=== PATIENT | female | born 1990 | race Caucasian/White ===

== ENCOUNTER → 2017-01-26 | Outpatient (CLI) | payer OTHER | END | disposition home or self-care (01) | LOC: LABWHC1 06:43 | PROVIDERS: ATTEND Obstetrics & Gynecology | DX: Z32.00 Encounter for pregnancy test, result unknown (principal) | CPT/HCPCS: 36415; 84144; 84702 ==

== ENCOUNTER 2017-08-02 21:25 | Outpatient (CLI) | payer OTHER ==
[2017-08-02 21:51] LABS: Appearance,Urine Clear (Clear); Bacteria,Urine Rare /hpf; Bilirubin,Urine Negative (Negative); Blood,Urine Negative (Negative); Color,Urine Light Yellow; Glucose,Urine (UA) Negative (Negative); Ketones,Urine Negative (Negative); Leukocyte Esterase,Urine Trace (Negative); Nitrite,Urine Negative (Negative); PH, Urine 5.5 (5.0-8.0); Protein,Urine Negative (Negative); RBC,Urine 1 /hpf (0-5); Specific Gravity,Urine 1.004 (1.001-1.035); Squamous Epithelial Cell,Urine <1 /hpf (0-4); Urobilinogen,Urine <2.0 mg/dL (<2.0); WBC,Urine 1 /hpf (0-5)
[2017-08-02] MEDS: LACTATED RINGERS 1,000 ML IV SCH ×2 (21:56→22:37)
[2017-08-02 22:53] VITALS: BP 139/81; PULSE 91; RESP 18; TEMP 98.7
--- NOTE | 2017-10-02 09:15 | P.MSEPDOC ---
Presenting Problems - Arrival Data Date of Arrival on Unit: 08/02/17 Time of Arrival on Unit: 21:30 Mode of Transport: Wheelchair - Complaint OB-Reason for Admission/Chief Complaint: Pain Medical History - Information : 1 Para: 0 Term: 0 : 0 Abortions: Spontaneous or Elective: 0 Number of Living Children: 0 - Gestational Age Gestational Age by NATIVIDAD (wks/days): 30 Weeks and 6 Days Review of Systems - Review of Systems Constitutional: No problems Breast: No problems ENT: No problems Cardiovascular: No problems Respiratory: No problems Gastrointestinal: No problems Genitourinary: No problems Musculoskeletal: No problems Neurological: No problems Skin: No problems Vital Signs - Temperature Temperature: 98.7 F Temperature Source: Temporal Artery Scan - Pulse Right Brachial Pulse Rate: 91 Pulse Assessment Method: Automatic Cuff - Respirations Respiratory Rate: 18 Oxygen Delivery Method: Room Air - Blood Pressure Right Arm Blood Pressure: 139/81 Blood Pressure Mean: 100 Blood Pressure Source: Automatic Cuff Medical Screen Scoring (Pre) - Cervical Exam Dilation: 1-3 cm = 1 Membranes: Intact - Uterine Contractions Frequency: N/A Duration: N/A Intensity: N/A - Maternal Vital Signs Maternal Temperature: N/A Signs of Preeclampsia: N/A, Headache = 1, Nausea/Vomiting = 1, Visual Disturbance = 1 Maternal Respirations: N/A - Pain Assessment Pain Location and Character: Back Pain Scale Used: Numeric (1 - 10) Pain Intensity: 10 Pain Management Goal: 5 Pain Description: *Acute Pain Radiation Location: none Pain Frequency: Constant Pain Duration: 6 Pain Duration Units: Hours Pain Behavior: Decreased Activity, Facial Grimacing, Fidgeting, Limping, Teary Eyed, Vocalization Non-Pharmacological Interventions: Heat - Maternal Trauma Maternal Trauma: N/A - Assessment Baseline FHR: 140 Heart Rate - NICHD Category: Category I (Normal) = 0 NST: Reactive Position: N/A Station: N/A - Total Score Total Score (Pre): 4 - Level of Risk Level of Risk: Low (0-5) Physician Notification (Pre) - Physician Notified Physician Notified Date: 08/02/17 Physician Notified Time: 22:14 Physician/Practitioner Notifed:: Dr. Chow Spoke With: Dr. Chow New Order Received: Yes - Notification Comment Comment: treated pt with ivf, sent ua and ffn, if ffn negative, pt will be discharged home Medical Screen Scoring (Post) - Cervical Exam Dilation: 1-3 cm = 1 - Uterine Contractions Frequency: N/A Duration: N/A Intensity: N/A - Maternal Vital Signs Maternal Temperature: N/A Signs of Preeclampsia: N/A Maternal Respirations: N/A - Pain Assessment Pain Location and Character: Back Pain Scale Used: Numeric (1 - 10) Pain Intensity: 5 Pain Management Goal: 5 Pain Description: *Acute Pain Radiation Location: none Pain Frequency: Constant - Maternal Trauma Maternal Trauma: N/A - Assessment Heart Rate: 140 Heart Rate - NICHD Category: Category I (Normal) = 0 NST: Reactive Position: N/A Station: N/A - Total Score Total Score (Post): 1 - Post Treatment Level of Risk Post Treatment Level of Risk: Low (0-5) Physician Notification (Post) - Physician Notified Physician Notified Date: 08/02/17 Physician Notified Time: 22:14 Physician/Practitioner Notified:: Dr. Chow Spoke With: Dr. Chow New Order Received: Yes - Notification Comment Comment: discharge home if ffn is negative Disposition - Disposition OB Disposition: Physician follow up in office, Discharge to home, Written follow up instructions reviewed Discharge Date: 08/02/17 Discharge Time: 23:10 I agree with the RN Medical Screening Exam: Yes Risk & Benefit of care provided described in d/c instruction: Yes Diagnosis: FALSE LABOR BEFORE 37 COMPLETED WEEKS OF GEST, THIRD TRI
== END 2017-08-02 23:10 | disposition home or self-care (01) ==
LOC: FBPOP 21:25
PROVIDERS: ATTEND Obstetrics & Gynecology
DX: O47.03 False labor before 37 completed weeks of gestation, third trimester (principal); Z3A.30 30 weeks gestation of pregnancy
CPT/HCPCS: 59025; 81001; 82731; 96360; 96361; 99214

== ENCOUNTER 2017-09-25 11:24 | Outpatient (CLI) | payer OTHER ==
[2017-09-25 12:13] VITALS: RESP 16; TEMP 98.2
[2017-09-25 12:24] VITALS: BP 123/88; PULSE 88
--- NOTE | 2017-10-06 16:47 | P.MSEPDOC ---
Presenting Problems - Arrival Data Date of Arrival on Unit: 09/25/17 Time of Arrival on Unit: 11:27 Mode of Transport: Ambulatory - Complaint OB-Reason for Admission/Chief Complaint: PIH, Observation/Evaluation Comment: pt here for blood pressure monitoring sent from the office Medical History - Information : 1 Para: 0 Term: 0 : 0 Abortions: Spontaneous or Elective: 0 Number of Living Children: 0 - Gestational Age Gestational Age by NATIVIDAD (wks/days): 38 Weeks and 4 Days Review of Systems - Review of Systems Constitutional: No problems Breast: No problems ENT: No problems Cardiovascular: No problems Respiratory: No problems Gastrointestinal: No problems Genitourinary: No problems Musculoskeletal: No problems Neurological: No problems Skin: No problems Vital Signs - Temperature Temperature: 98.2 F Temperature Source: Oral - Pulse Right Brachial Pulse Rate: 88 Pulse Assessment Method: Automatic Cuff - Respirations Respiratory Rate: 16 Oxygen Delivery Method: Room Air O2 Sat by Pulse Oximetry: 99 - Blood Pressure Right Arm Blood Pressure: 123/88 Blood Pressure Mean: 99 Blood Pressure Source: Automatic Cuff Medical Screen Scoring (Pre) - Cervical Exam Dilation: Exam Deferred - Uterine Contractions Frequency: N/A Duration: N/A Intensity: N/A - Maternal Vital Signs Maternal Temperature: N/A Maternal Blood Pressure: N/A Signs of Preeclampsia: N/A Maternal Respirations: N/A - Pain Assessment Pain Scale Used: Numeric (1 - 10) Pain Intensity: 0 Pain Management Goal: 0 Pain Behavior: None Exhibited - Maternal Trauma Maternal Trauma: N/A - Assessment Baseline FHR: 130 Heart Rate - NICHD Category: Category I (Normal) = 0 NST: Reactive Position: N/A, Non-vertex & not laboring = 3 Station: N/A - Total Score Total Score (Pre): 3 - Level of Risk Level of Risk: Low (0-5) Physician Notification (Pre) - Physician Notified Physician Notified Date: 09/25/17 Physician/Practitioner Notifed:: Dr Chow Spoke With: Dr Chow New Order Received: Yes - Notification Comment Comment: if blood pressures remain WNL, and NST is reactive, no contractions, pt may be discharged home. Medical Screen Scoring (Post) - Cervical Exam Dilation: Exam Deferred - Uterine Contractions Frequency: N/A - Maternal Vital Signs Maternal Temperature: N/A Signs of Preeclampsia: N/A Maternal Respirations: N/A - Pain Assessment Pain Scale Used: Numeric (1 - 10) Pain Intensity: 0 Pain Management Goal: 0 Pain Behavior: None Exhibited - Maternal Trauma Maternal Trauma: N/A - Assessment Heart Rate: 130 Heart Rate - NICHD Category: Category I (Normal) = 0 NST: Reactive Position: N/A Station: N/A - Total Score Total Score (Post): 0 - Post Treatment Level of Risk Post Treatment Level of Risk: Low (0-5) Physician Notification (Post) - Physician Notified Physician Notified Date: 09/25/17 Spoke With: Dr Chow - Notification Comment Comment: pt to be discharged NST reactive, blood pressure WNL spoke with Dr Chow earlier upon admission Disposition - Disposition OB Disposition: Discharge to home Discharge Date: 09/25/17 Discharge Time: 12:16 I agree with the RN Medical Screening Exam: Yes Risk & Benefit of care provided described in d/c instruction: Yes Diagnosis: OTHER SPECIFIED COMPLICATIONS OF LABOR AND DELIVERY
== END 2017-09-25 12:16 | disposition home or self-care (01) ==
LOC: FBPOP 11:24
PROVIDERS: ATTEND Obstetrics & Gynecology Obstetrics
DX: O75.89 Other specified complications of labor and delivery (principal); Z3A.38 38 weeks gestation of pregnancy
CPT/HCPCS: 59025; 99213

== ENCOUNTER 2017-09-28 05:55 | Inpatient (IN) | payer OTHER ==
[2017-09-28 06:10] VITALS: BMI 37.0
[2017-09-28] MEDS ORDERED: TERBUTALINE 1 MG/ML VIAL SQ PRN (06:10)
[2017-09-28] MEDS ORDERED: OXYTOCIN 10 UNIT/ML 1 ML VIAL IM PRN (06:10)
[2017-09-28] MEDS ORDERED: LIDOCAINE 1% (PF) 10 MG/ML (30 ML SDV) SQ PRN (06:10)
[2017-09-28] MEDS ORDERED: METHYLERGONOVINE 0.2 MG/ML 1 ML AMP IM PRN (06:10)
[2017-09-28] MEDS ORDERED: CARBOPROST TROMETHAMINE 250 MCG/ML 1 ML AMP IM PRN (06:10)
[2017-09-28] MEDS ORDERED: OXYTOCIN 20 UNITS/1000 ML NS 1,000 ML IV SCH ×2 (06:15→13:15)
[2017-09-28] MEDS: LACTATED RINGERS 1,000 ML IV SCH ×2 (06:16→10:15)
[2017-09-28 06:21] LABS: Basophils % (A) 0 %; Eosinophils # (A) 0.1 k/uL (0-0.7); Eosinophils % (A) 1 %; HCT 34.9 % (34.0-46.0); HGB 11.3 gm/dL (11.4-16.0); Lymphocytes # (A) 2.7 k/uL (1.0-4.8); Lymphocytes % (A) 26 %; MCH 25.4 pg (25.0-35.0); MCHC 32.2 g/dL (31.0-37.0); MCV 78.8 fL (80.0-100.0); Mean Platelet Volume 10.3; Monocytes # (A) 0.6 k/uL (0-1.0); Monocytes % (A) 6 %; Neutrophils # (A) 6.8 k/uL (1.3-7.7); Neutrophils % (A) 65 %; Platelet Count 214 k/uL (150-450); RBC 4.43 m/uL (3.80-5.40); RDW 13.6 % (11.5-15.5); WBC 10.4 k/uL (3.8-10.6)
--- NOTE | 2017-09-28 08:25 | P.HPOB ---
History of Present Illness H&P Date: 09/28/17 Chief Complaint: IUP @ 39 0/7 weeks This is a 27 yo AT 39 0/7 that presents for IOL. she had an elevated BP in the office on tuesday 09/26. she notes good FM, and denies LOF, VB on blood work blood type is O pos, rubella immune, hepatitis B surface antigen negative, HIV negative, RPR nonreactive, group beta strep negative. Past medical history significant for hypothyroidism, asthma, polycystic ovarian syndrome. Review of Systems Constitutional: Denies fatigue Cardiovascular: Denies chest pain Respiratory: Denies cough, Denies dyspnea Gastrointestinal: Denies constipation, Denies diarrhea Genitourinary: Reports Psychiatric: Denies anxiety, Denies depression Past Medical History Past Medical History: Thyroid Disorder History of Any Multi-Drug Resistant Organisms: None Reported Past Surgical History: Orthopedic Surgery Past Anesthesia/Blood Transfusion Reactions: No Reported Reaction Past Psychological History: No Psychological Hx Reported Smoking Status: Never smoker Past Alcohol Use History: None Reported Past Drug Use History: None Reported - Past Family History Father Family Medical History: No Reported History Medications and Allergies Home Medications Medication Instructions Recorded Confirmed Type Levothyroxine Sodium [Synthroid] 125 mcg PO DAILY 07/12/17 09/28/17 History Omeprazole 20 mg PO DAILY 08/02/17 09/28/17 History Pnv,Calcium 72/Iron/Folic Acid 1 tab PO DAILY 08/02/17 09/28/17 History [ Plus Tablet] Allergies Allergy/AdvReac Type Severity Reaction Status Date / Time No Known Allergies Allergy Verified 09/28/17 05:58 Exam Osteopathic Statement: *. No significant issues noted on an osteopathic structural exam other than those noted in the History and Physical/Consult. - Vital Signs Vital signs: Vital Signs Temp Pulse Resp BP Pulse Ox 09/28/17 05:57 98.4 F 103 H 16 137/88 98 Intake and Output 09/27/17 09/28/17 09/28/17 22:59 06:59 14:59 Other: # Voids 1 Weight 101.151 kg - OBG Physical Exam Abdomen: gravid Cervix: 4/90/-2, AROM fluid noted Uterus: enlarged Results Result Diagrams: 09/28/17 06:15 Abnormal Lab Results - Last 24 Hours (Table) 03/12/18 Range/Units 06:15 Hgb 11.3 L (11.4-16.0) gm/dL MCV 78.8 L (80.0-100.0) fL Assessment and Plan (1) Term Narrative/Plan: will admit for labor and delivery, pitocin induction per protocol pain medication, stadol, epidural if requested. Current Visit: Yes Status: Acute Code(s): Z34.80 - ENCOUNTER FOR SUPRVSN OF NORMAL , UNSP TRIMESTER SNOMED Code(s): 85812819 Time with Patient: Less than 30
[2017-09-28] MEDS ORDERED: BUPIVACAINE (PF) 0.25% 30 ML VIAL ONE (10:18)
[2017-09-28] MEDS ORDERED: fentaNYL (PF) 50 MCG/ML 5 ML AMP ONE (10:18)
[2017-09-28] MEDS ORDERED: SODIUM CHLORIDE 0.9% 100 ML BAG ONE (10:18)
[2017-09-28] MEDS ORDERED: BUPIVACAINE (PF) 0.25% 25 ML, fentaNYL (PF) 200 MCG in SODIUM CHLORIDE 0.9% 71 ML EPIDURAL ONE (10:34)
[2017-09-28] MEDS ORDERED: BENZOCAINE/MENTHOL SPRAY 1 GM/SPRAY AEROSOL TOPICAL PRN (13:03)
[2017-09-28] MEDS ORDERED: diphenhydrAMINE 25 MG CAP PO PRN (13:03)
[2017-09-28] MEDS ORDERED: diphenhydrAMINE 50 MG/ML 1 ML VIAL IVP PRN ×2 (13:03)
[2017-09-28] MEDS ORDERED: WITCH HAZEL 1 EACH MED..PAD TOPICAL PRN (13:03)
[2017-09-28] MEDS ORDERED: diphenhydrAMINE 50 MG CAP PO PRN (13:03)
[2017-09-28] MEDS ORDERED: IBUPROFEN 600 MG TAB PO PRN (13:03)
[2017-09-28] MEDS ORDERED: LANOLIN CREAM 5 GM TUBE TOPICAL PRN (13:03)
[2017-09-28] MEDS ORDERED: HYDROCORTISONE 2.5% RECTAL CREAM 30 GM TUBE RECTAL PRN (13:03)
[2017-09-28] MEDS ORDERED: SIMETHICONE 80 MG CHEWABLE PO PRN (13:03)
[2017-09-28] MEDS ORDERED: ACETAMINOPHEN TAB 325 MG TAB PO PRN (13:03)
[2017-09-28] MEDS ORDERED: ZOLPIDEM 5 MG TAB PO PRN (13:03)
--- NOTE | 2017-09-28 13:03 | P.PROBDLV ---
Vaginal Delivery Note - . Vaginal Delivery Note: This is a pleasant 27-year-old 1 para 0 at 39-0/7 weeks with an estimated date of confinement of 10/05/2017. She presented to labor and delivery earlier today for induction of labor. Patient was noted to have an elevated blood pressure in the office on Thursday and elective induction of labor was scheduled. Patient was admitted to labor and delivery was 4 cm on admission Pitocin augmentation of labor was begun and amniotomy was performed yielding clear fluid. Patient progressed to 5-1/2 eventually getting an epidural after the epidural patient was noted to be 9 cm dilated. Patient progressed to complete heart tones at that time were noted to be reassuring, with subsequent pushing heart tones dropped to the 80s with good [id number] and recovery to baseline and hands and knees position. Patient brought the baby down to +2 station with pushing. At this time patient was taken to her left side heart tones were noted to be in the 90s. Patient was taken back to her back pushing continued heart tones were noted to be in the 70s/80s a vacuum was applied for for total pushes no pop offs were noted the pressure was noted to be in the green with each push and pressure was only applied with each contraction. Patient had a vacuum-assisted vaginal delivery of a viable male at 12:30, weight of 6 lbs. 4 oz. spontaneous cry was noted at with a good heart rate. The scalp was noted to be slightly edematous with some sloughing of the skin secondary to the vacuum assist delivery. This was discussed with mom and dad as the baby was on the warmer. The placenta was then delivered spontaneously and cord gasses was taken prior to placenta delivery. A right labial laceration was noted which was repaired in the usual fashion with 3-0 chromic. Of note the bladder was drained prior to and application of the vacuum. Patient tolerated delivery well was resting comfortably and stable in the nursery. Estimated blood loss was noted to be partially 300 mL. Next Delivery was discussed with the patient in detail, vacuum assist delivery was chosen for delivery secondary to position and station. Patient stated understanding all questions were answered regarding the delivery
[2017-09-28] MEDS: SENNOSIDES-DOCUSATE SODIUM 1 EACH TAB PO SCH (19:39)
[2017-09-29 00:21] VITALS: RESP 18
[2017-09-29] MEDS: SENNOSIDES-DOCUSATE SODIUM 1 EACH TAB PO SCH ×2 (08:45→20:53)
[2017-09-29] MEDS: LEVOTHYROXINE 125 MCG TAB PO SCH (09:14)
[2017-09-29] MEDS: PRENATAL VIT-IRON-FOLIC ACID 1 EACH CAP PO SCH (09:14)
--- NOTE | 2017-09-29 12:42 | P.PN ---
Subjective Progress Note Date: 09/29/17 Principal diagnosis: PPD #1 VAVD Patient is doing well on this day #1. She is ambulating and voiding without difficulty. breast feeding is going well. Lochia is minimal. She is tolerating regular diet without nausea or vomiting. She denies any pain control issues at this time. Objective - Vital Signs Vital signs: Vital Signs Temp 97.8 F 09/29/17 08:00 Pulse 96 09/29/17 08:00 Resp 18 09/29/17 08:00 BP 142/84 09/29/17 08:00 Pulse Ox 98 09/29/17 08:00 Intake & Output 09/28/17 09/29/17 09/29/17 18:59 06:59 18:59 Other: # Voids 1 2 2 - Constitutional General appearance: Present: average body habitus, cooperative - Gastrointestinal Gastrointestinal Comment(s): uterus firm below the umbilicus - Musculoskeletal Musculoskeletal: Present: gait normal - Psychiatric Psychiatric: Present: A&O x's 3, appropriate affect - Labs CBC & Chem 7: 09/28/17 06:15 Assessment and Plan (1) Term Current Visit: Yes Status: Acute Code(s): Z34.80 - ENCOUNTER FOR SUPRVSN OF NORMAL , UNSP TRIMESTER SNOMED Code(s): 72881009 Plan: doing well post , anticipate d/c tomorrow. all questions answered. Time with Patient: Less than 30
[2017-09-30] MEDS: LEVOTHYROXINE 125 MCG TAB PO SCH (07:45)
[2017-09-30] MEDS: SENNOSIDES-DOCUSATE SODIUM 1 EACH TAB PO SCH (07:45)
[2017-09-30] MEDS: PRENATAL VIT-IRON-FOLIC ACID 1 EACH CAP PO SCH (07:45)
--- NOTE | 2017-09-30 09:18 | P.DS ---
Providers Date of admission: 09/28/17 05:55 Expected date of discharge: 09/30/17 Attending physician: Bisi Chow Primary care physician: Stated None - Discharge Diagnosis(es) (1) Term Current Visit: Yes Status: Acute Hospital Course: didi is a 27uo admitted for elective IOL on 09/28. pt progressed through labor well, getting an epidural and NRFHTs and +2 station resulted in a VAVD of a viable male infant apgars 6-8 at 1 and 5 mins respectively. has done well since delivery. nikko course has been uneventful. she is ambulating and voiding without difficulty and denies pain. she is withtout issue in addition. she is tolerating a regular diet without n/v. lochia is moderate. Patient Condition at Discharge: Good Plan - Discharge Summary New Discharge Prescriptions: No Action Levothyroxine Sodium [Synthroid] 125 mcg PO DAILY Omeprazole 20 mg PO DAILY Pnv,Calcium 72/Iron/Folic Acid [ Plus Tablet] 1 tab PO DAILY Discharge Medication List Levothyroxine Sodium [Synthroid] 125 mcg PO DAILY 07/12/17 [History] Omeprazole 20 mg PO DAILY 08/02/17 [History] Pnv,Calcium 72/Iron/Folic Acid [ Plus Tablet] 1 tab PO DAILY 08/02/17 [ History] Follow up Appointment(s)/Referral(s): Bisi Chow DO [Doctor of Osteopathic Medicine] - 1-2 Days (thursday for BP check) Patient Instructions/Handouts: Vaginal Delivery (GEN), Vaginal Delivery (DC)
[2017-09-30 10:47] VITALS: BP 141/83; PULSE 96; TEMP 98.6
== END 2017-09-30 14:10 | disposition home or self-care (01) | DRG 775 ==
LOC: 4FBP 05:55
PROVIDERS: ADMIT Obstetrics & Gynecology Obstetrics; ATTEND Obstetrics & Gynecology Obstetrics
PROC: 10E0XZZ Delivery of Products of Conception, External Approach (ICD-10-PCS; principal; 2017-09-28)
PROC: 3E0R3NZ Introduction of Analgesics, Hypnotics, Sedatives into Spinal Canal, Percutaneous Approach (ICD-10-PCS; principal; 2017-09-28)
PROC: 0HQ9XZZ Repair Perineum Skin, External Approach (ICD-10-PCS; principal; 2017-09-28)
PROC: 10D07Z6 Extraction of Products of Conception, Vacuum, Via Natural or Artificial Opening (ICD-10-PCS; principal; 2017-09-28)
PROC: 10907ZC Drainage of Amniotic Fluid, Therapeutic from Products of Conception, Via Natural or Artificial Opening (ICD-10-PCS; principal; 2017-09-28)
DX: O70.0 First degree perineal laceration during delivery (principal); E03.9 Hypothyroidism, unspecified; Z37.0 Single live birth; O99.284 Endocrine, nutritional and metabolic diseases complicating childbirth; Z3A.39 39 weeks gestation of pregnancy; Z79.890 Hormone replacement therapy; Z79.899 Other long term (current) drug therapy
CPT/HCPCS: 85025; 88307

== ENCOUNTER → 2019-05-16 | Outpatient (CLI) | payer OTHER | END | disposition home or self-care (01) | LOC: LABWHC1 09:04 | PROVIDERS: ATTEND Obstetrics & Gynecology Obstetrics | DX: O20.0 Threatened abortion (principal); Z3A.00 Weeks of gestation of pregnancy not specified | CPT/HCPCS: 36415; 84702; 86850; 86900; 86901 ==

== ENCOUNTER → 2019-05-18 | Outpatient (CLI) | payer OTHER | LOC: LABWHC1 09:10 | PROVIDERS: ATTEND Obstetrics & Gynecology Obstetrics | DX: O20.0 Threatened abortion (principal) | CPT/HCPCS: 36415; 84702 ==

== ENCOUNTER → 2019-11-11 | Outpatient (CLI) | payer BC | END | disposition home or self-care (01) | LOC: LABWHC1 08:13 | PROVIDERS: ATTEND Obstetrics & Gynecology Obstetrics | DX: N92.5 Other specified irregular menstruation (principal) | CPT/HCPCS: 36415; 84702 ==

== ENCOUNTER → 2019-11-14 | Outpatient (CLI) | payer BC | END | disposition home or self-care (01) | LOC: LABWHC1 08:23 | PROVIDERS: ATTEND Obstetrics & Gynecology Obstetrics | DX: N92.5 Other specified irregular menstruation (principal) | CPT/HCPCS: 36415; 84702 ==

== ENCOUNTER 2020-07-11 06:00 | Inpatient (IN) | payer BC ==
[2020-07-11] MEDS ORDERED: OXYTOCIN 10 UNIT/ML 1 ML VIAL IM PRN (16:22)
[2020-07-11] MEDS ORDERED: LIDOCAINE 0.5% (PF) 5 MG/ML (50 ML SDV) SQ PRN (16:22)
[2020-07-11] MEDS ORDERED: TERBUTALINE 1 MG/ML VIAL SQ PRN (16:22)
[2020-07-11] MEDS ORDERED: CARBOPROST TROMETHAMINE 250 MCG/ML 1 ML AMP IM PRN (16:22)
[2020-07-11] MEDS ORDERED: METHYLERGONOVINE 0.2 MG/ML 1 ML AMP IM PRN (16:22)
[2020-07-11] MEDS ORDERED: OXYTOCIN 30 UNITS/500 ML NS 30 UNIT in SALINE 1 500ML.BAG IV SCH (16:30)
[2020-07-11] MEDS: LACTATED RINGERS 1,000 ML IV SCH ×3 (17:00→23:56)
--- NOTE | 2020-07-11 17:17 | P.HPOB ---
History of Present Illness H&P Date: 07/11/20 Chief Complaint: IUP @ 380/7 weeks, anomaly, h/o VAVD This is a 30 yo at 38 0/7 weeks that presents for IOL secondary to anomaly. she has been receiving routine care and at her 20 weeks ultrasound anomaly was noted, maternity 21 was drawn and normal. she was seen by MFM and an underdeveloped left ulna and hand was diagnosed. 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 she was an IOL at 39 weeks and progressed quickly to complete when NRFHTs necessitated a VAVD. she has been undergoing growth US q 4 week along with weekly NST. US done on 07/04 revealing an EFW of 6-14. she has been noting increasing ctx, and pelvic pressure this week. On labs she has a blood type of O pos, rubella immune, RPR NR, hepBSag neg, HIV neg, GBS culture is neg as well. she did receive the flu and Tdap injections this . Review of Systems Constitutional: Reports fatigue, Denies chills, Denies fever Ears, nose, mouth and throat: Denies headache Cardiovascular: Reports leg edema Respiratory: Denies dyspnea Gastrointestinal: Denies nausea, Denies vomiting Genitourinary: Reports Past Medical History Past Medical History: Thyroid Disorder History of Any Multi-Drug Resistant Organisms: None Reported Past Surgical History: Orthopedic Surgery Past Anesthesia/Blood Transfusion Reactions: No Reported Reaction Past Psychological History: No Psychological Hx Reported Past Alcohol Use History: None Reported Past Drug Use History: None Reported - Past Family History Father Family Medical History: No Reported History Medications and Allergies Home Medications Medication Instructions Recorded Confirmed Type Levothyroxine Sodium [Synthroid] 125 mcg PO DAILY MDD 125 mcg 07/12/17 07/11/20 History Pnv,Calcium 72/Iron/Folic Acid 1 tab PO DAILY MDD 1 tab 08/02/17 07/11/20 History [ Plus Tablet] Allergies Allergy/AdvReac Type Severity Reaction Status Date / Time No Known Allergies Allergy Verified 09/28/17 05:58 Exam Osteopathic Statement: *. No significant issues noted on an osteopathic structural exam other than those noted in the History and Physical/Consult. targeted physical exam done on this date, in general this is a well developed, well nourished female in [facility], breathing is noted to be non labored, heart has a RRR, abdomen is gravid, FHTS are category 1 and irregular CTX are noted. on cervical exam she is 4-5/50/-2 amniotomy is preformed and clear fluid is obtained Assessment and Plan (1) anomaly Current Visit: No Status: Acute Code(s): OXY7313 - SNOMED Code(s): 89134113 (2) Term Current Visit: No Status: Acute Code(s): Z34.80 - ENCOUNTER FOR SUPRVSN OF NORMAL , UNSP TRIMESTER SNOMED Code(s): 52655849 Plan: this 30 yo at 38 weeks presents for planned IOL secondary to known anomaly and h/o VAVD. she has been notinng increasing ctx this week along with pelvic pressure. she is admitted to labor and delivery for IOL. Pitocin induction of labor is begun per hospital protocol. options of stadol vs epid ural are reviewed and she will consider.
[2020-07-11 17:24] LABS: Basophils % (A) 0 %; Eosinophils # (A) 0.1 k/uL (0-0.7); Eosinophils % (A) 1 %; HCT 31.9 % (34.0-46.0); HGB 10.5 gm/dL (11.4-16.0); Hypochromasia Slight; Lymphocytes # (A) 2.2 k/uL (1.0-4.8); Lymphocytes % (A) 22 %; MCH 26.1 pg (25.0-35.0); MCHC 33.1 g/dL (31.0-37.0); MCV 78.9 fL (80.0-100.0); Mean Platelet Volume 10.2; Monocytes # (A) 0.6 k/uL (0-1.0); Monocytes % (A) 6 %; Neutrophils # (A) 6.8 k/uL (1.3-7.7); Neutrophils % (A) 67 %; Platelet Count 203 k/uL (150-450); RBC 4.04 m/uL (3.80-5.40); WBC 10.2 k/uL (3.8-10.6)
[2020-07-11] MEDS ORDERED: ROPIVACAINE 5MG/ML 20ML VIAL ONE (20:31)
[2020-07-11] MEDS ORDERED: SODIUM CHLORIDE 0.9% 100 ML BAG ONE (20:31)
[2020-07-11] MEDS ORDERED: fentaNYL (PF) 50 MCG/ML 5 ML AMP ONE (20:31)
[2020-07-11] MEDS: OXYTOCIN 20 UNITS/1000 ML NS 1,000 ML IV SCH (21:36)
[2020-07-11] MEDS ORDERED: SIMETHICONE 80 MG CHEWABLE PO PRN (21:49)
[2020-07-11] MEDS ORDERED: ACETAMINOPHEN TAB 325 MG TAB PO PRN (21:49)
[2020-07-11] MEDS ORDERED: BENZOCAINE/MENTHOL SPRAY 1 GM/SPRAY AEROSOL TOPICAL PRN (21:49)
[2020-07-11] MEDS ORDERED: LANOLIN CREAM 5 GM TUBE TOPICAL PRN (21:49)
[2020-07-11] MEDS ORDERED: ZOLPIDEM 5 MG TAB PO PRN (21:49)
[2020-07-11] MEDS ORDERED: diphenhydrAMINE 50 MG CAP PO PRN (21:49)
[2020-07-11] MEDS ORDERED: diphenhydrAMINE 25 MG CAP PO PRN (21:49)
[2020-07-11] MEDS ORDERED: HYDROCORTISONE 2.5% RECTAL CREAM 30 GM TUBE RECTAL PRN (21:49)
[2020-07-11] MEDS ORDERED: diphenhydrAMINE 50 MG/ML 1 ML VIAL IVP PRN ×2 (21:49)
--- NOTE | 2020-07-11 21:54 | P.PROBDLV ---
Vaginal Delivery Note - . Vaginal Delivery Note: This is a 30-year-old 011 that presented to labor and delivery at 38-0/7 weeks for scheduled induction of labor secondary to anomaly, history of vacuum assist vaginal delivery. Subsequently on admission patient was noted to be 4-5 cm dilated, advanced cervical dilation with contractions. Patient has had a that is been complicated by a anomaly, patient was seen in maternal- medicine secondary to under developed left ulnar and hand. MFM did feel like be vascular insult during organogenesis versus amniotic band syndrome. Patient has noted good growth throughout the , testing has been reassuring. Patient was admitted to labor and delivery and Pitocin induction of labor was begun per hospital protocol. Amniotomy was performed and clear fluid was obtained. Patient progressed through labor eventually becoming uncomfortable and requesting epidural placement. Epidural was placed by the anesthesia Department without difficulty. Soon after epidural patient was noted to be complete she began pushing and had normal spontaneous vaginal delivery of a viable male at 2132, weight of 7 pounds 1.8 ounces or 3225 g, Apgars of 9 and 9 at one and 5 minutes respectively. After two-minute delay the umbilical cords doubly clamped and cut and the placenta was delivered spontaneously intact with a three-vessel cord being noted. On inspection the patient's vaginal vault a first-degree vaginal laceration was noted and repaired in usual fashion with 3-0 Rapide. Hemostasis was appreciated after repair. Uterus is noted to be firm and below the umbilicus at this time. Estimated blood loss 200 mL. Patient and tolerated delivery well and are resting comfortably.
[2020-07-11] MEDS: IBUPROFEN 600 MG TAB PO PRN (22:21)
[2020-07-12 00:10] LABS: Basophils % (A) 0 %; Eosinophils # (A) 0.1 k/uL (0-0.7); Eosinophils % (A) 0 %; HCT 28.1 % (34.0-46.0); Hypochromasia Slight; Lymphocytes # (A) 1.9 k/uL (1.0-4.8); Lymphocytes % (A) 9 %; MCHC 31.2 g/dL (31.0-37.0); MCV 79.9 fL (80.0-100.0); Mean Platelet Volume 10.8; Monocytes # (A) 0.8 k/uL (0-1.0); Monocytes % (A) 4 %; Neutrophils # (A) 17.4 k/uL (1.3-7.7); Neutrophils % (A) 85 %; Platelet Count 232 k/uL (150-450); RBC 3.52 m/uL (3.80-5.40); RDW 14.1 % (11.5-15.5); WBC 20.5 k/uL (3.8-10.6)
--- NOTE | 2020-07-12 00:13 | P.PN ---
Subjective Progress Note Date: 07/12/20 Principal diagnosis: hemorrhage The patient is status post normal spontaneous vaginal delivery approximately 2 hours ago which was relatively uncomplicated and nature. During her recovery, she is noted to have significantly increased vaginal bleeding with relative ut erine atony. A significant amount of clots were passed after which time I was contacted. The patient reports not feeling well at that time. Objective - Vital Signs Vital signs: Vital Signs Temp 97.6 F 07/11/20 22:40 Pulse 113 H 07/11/20 23:10 Resp 18 07/11/20 23:10 BP 127/69 07/11/20 23:10 Pulse Ox 97 07/11/20 16:59 Intake & Output 07/11/20 07/11/20 07/12/20 06:59 18:59 06:59 Intake Total 1800 Balance 1800 Weight 99.79 kg Intake: IV 1800 Other: # Voids 2 - Exam In general, the patient is somewhat pale in appearance and was noted to be fairly tachycardic with short-term lower blood pressures which have now normalized. She remains tachycardic in the 110's. Bimanual pelvic examination demonstrates a moderate amount of clot in the lower uterine segment which is not well contracted. Clots were evacuated onto the mother's pad at which time a piece of tissue was felt just above the level of the cervix was grasped between 2 fingers and removed intact after which time the uterus contracted very well and was noted to be 2 fingers below the umbilicus with no significant ongoing bleeding. I then examined the placenta and noted that one of the margins of the placenta had a similarly shaped piece missing from the edge of the placenta. - Labs CBC & Chem 7: 07/11/20 17:15 Labs: Abnormal Lab Results - Last 24 Hours (Table) 07/11/20 07/11/20 Range/Units 17:15 17:15 Hgb 10.5 L (11.4-16.0) gm/dL Hct 31.9 L (34.0-46.0) % MCV 78.9 L (80.0-100.0) fL Crossmatch See Detail Assessment and Plan (1) Normal spontaneous vaginal delivery Current Visit: Yes Status: Acute Code(s): O80 - ENCOUNTER FOR FULL-TERM UNCOMPLICATED DELIVERY SNOMED Code(s): 49198287 (2) hemorrhage Current Visit: Yes Status: Acute Code(s): O72.1 - OTHER IMMEDIATE HEMORRHAGE SNOMED Code(s): 43563714 (3) Retained placenta Current Visit: Yes Status: Acute Code(s): O73.0 - RETAINED PLACENTA WITHOUT HEMORRHAGE SNOMED Code(s): 945697379 Plan: Digital evacuation of the lower uterine segment was able to remove a fairly l arge portion of placenta which was undoubtedly causing continued bleeding and uterine atony with the inability of the lower uterine segment to contract well despite Pitocin and Methergine. Following evacuation of clots and placenta, the uterus contracted significantly well. Vital signs are currently stable though she is still tachycardic. Total blood loss calculated by weight by the nursing staff is in the range of 2300 mL including delivery. As her admission hemoglobin was 10.5, I will transfuse 1 unit of packed red blood cells and hold the second in reserve. Stat CBC is currently pending. She will have a repeat CBC approximate 6 hours posttransfusion of the unit of packed red blood cells. We will continue with Pitocin through the night and monitor carefully for further uterine atony as well as vital sign abnormalities. I have also asked the nursing staff to follow urine output.
[2020-07-12 00:16] LABS: HGB 8.8 gm/dL (11.4-16.0)
[2020-07-12] MEDS: LACTATED RINGERS 1,000 ML IV SCH ×3 (00:45→02:09)
[2020-07-12] MEDS: OXYTOCIN 20 UNITS/1000 ML NS 1,000 ML IV SCH (01:21)
[2020-07-12] MEDS ORDERED: LEVOTHYROXINE 125 MCG TAB PO SCH (06:30)
[2020-07-12] MEDS: IBUPROFEN 600 MG TAB PO PRN ×3 (07:42→19:47)
--- NOTE | 2020-07-12 08:21 | P.DS ---
Providers Date of admission: 07/11/20 16:29 Expected date of discharge: 07/12/20 Attending physician: Bisi Chow Primary care physician: Stated None - Discharge Diagnosis(es) (1) anomaly Current Visit: No Status: Acute (2) Term Current Visit: No Status: Acute (3) Normal spontaneous vaginal delivery Current Visit: Yes Status: Acute (4) hemorrhage Current Visit: Yes Status: Acute (5) Retained placenta Current Visit: Yes Status: Acute Hospital Course: 30-year-old 3 para 2011 presented to labor and delivery last evening for scheduled induction of labor at 38-0/7 weeks that ear to anomaly and history of vacuum assist vaginal delivery. Patient had been seeing maternal medicine after a 20 week ultrasound noted a limb abnormality. Patient had underdeveloped left arm and hand. Patient underwent maternity 21 testing and no genetic anomaly was appreciated. Patient was seen closely throughout the with normal growth and testing. Patient was admitted to labor and delivery and Pitocin induction of labor was begun per hospital protocol. Patient underwent amniotomy and clear fluid was obtained. Patient progressed quickly through labor eventually becoming uncomfortable and requesting epidural placement. Epidural was placed without difficulty by the anesthesia department. Patient progressed to complete very quickly after epidural was placed began pushing and had a normal spontaneous vaginal delivery of a viable male , weight of 7 lbs. 1 oz. at 2132, Apgars of 9 and 9 at one and 5 minutes respectively. Patient's course was Dated by a hemorrhage around midnight. Patient noted increased bleeding, a small piece piece of placenta was evacuated from the uterus. Patient did receive 1 unit of packed red blood cells. Starting hemoglobin 10.5 went down to 8.1 per patient. Patient states she is feeling well this morning. She is ambulatory and voiding without difficulty. She tolerate breakfast without difficulty. She states the is nursing well. She is due for an additional CBC around 9:30 10 AM this morning. We will monitor vitals and evaluate hemoglobin as she would like discharge home later this evening at 24 hours. Patient Condition at Discharge: Good Plan - Discharge Summary New Discharge Prescriptions: No Action Levothyroxine Sodium [Synthroid] 125 mcg PO DAILY MDD 125 mcg Pnv,Calcium 72/Iron/Folic Acid [ Plus Tablet] 1 tab PO DAILY MDD 1 tab Discharge Medication List Levothyroxine Sodium [Synthroid] 125 mcg PO DAILY MDD 125 mcg 07/12/17 [History] Pnv,Calcium 72/Iron/Folic Acid [ Plus Tablet] 1 tab PO DAILY MDD 1 tab 08/02/17 [History] Follow up Appointment(s)/Referral(s): Bisi Chow DO [Doctor of Osteopathic Medicine] - 4 Weeks Patient Instructions/Handouts: Vaginal Delivery (DC), Vaginal Delivery (GEN) Discharge Disposition: HOME SELF-CARE
[2020-07-12] MEDS ORDERED: PRENATAL VIT-IRON-FOLIC ACID 1 EACH CAP PO SCH (09:00)
[2020-07-12 10:39] LABS: Basophils % (A) 0 %; Eosinophils # (A) 0.1 k/uL (0-0.7); Eosinophils % (A) 0 %; HCT 26.1 % (34.0-46.0); HGB 8.6 gm/dL (11.4-16.0); Hypochromasia Slight; Lymphocytes # (A) 1.8 k/uL (1.0-4.8); Lymphocytes % (A) 15 %; MCH 26.6 pg (25.0-35.0); MCHC 32.9 g/dL (31.0-37.0); MCV 80.8 fL (80.0-100.0); Mean Platelet Volume 9.5; Monocytes # (A) 0.7 k/uL (0-1.0); Monocytes % (A) 6 %; Neutrophils # (A) 9.4 k/uL (1.3-7.7); Neutrophils % (A) 77 %; Platelet Count 164 k/uL (150-450); RBC 3.24 m/uL (3.80-5.40); RDW 14.3 % (11.5-15.5); WBC 12.2 k/uL (3.8-10.6)
[2020-07-12] MEDS: SENNOSIDES-DOCUSATE SODIUM 1 EACH TAB PO SCH ×2 (11:11→20:32)
[2020-07-12 17:04] VITALS: BP 121/77; PULSE 92; RESP 16; TEMP 98.3
== END 2020-07-12 22:05 | disposition home or self-care (01) | DRG 806 ==
LOC: 4FBP 16:29
PROVIDERS: ADMIT Obstetrics & Gynecology Obstetrics; ATTEND Obstetrics & Gynecology Obstetrics
PROC: 10E0XZZ Delivery of Products of Conception, External Approach (ICD-10-PCS; principal; 2020-07-11)
PROC: 0HQ9XZZ Repair Perineum Skin, External Approach (ICD-10-PCS; principal; 2020-07-11)
PROC: 3E033VJ Introduction of Other Hormone into Peripheral Vein, Percutaneous Approach (ICD-10-PCS; principal; 2020-07-11)
PROC: 00HU33Z Insertion of Infusion Device into Spinal Canal, Percutaneous Approach (ICD-10-PCS; principal; 2020-07-11)
PROC: 3E0R3BZ Introduction of Anesthetic Agent into Spinal Canal, Percutaneous Approach (ICD-10-PCS; principal; 2020-07-11)
PROC: 10907ZC Drainage of Amniotic Fluid, Therapeutic from Products of Conception, Via Natural or Artificial Opening (ICD-10-PCS; principal; 2020-07-11)
PROC: 10D17Z9 Manual Extraction of Products of Conception, Retained, Via Natural or Artificial Opening (ICD-10-PCS; 2020-07-12)
PROC: 30233N1 Transfusion of Nonautologous Red Blood Cells into Peripheral Vein, Percutaneous Approach (ICD-10-PCS; 2020-07-12)
DX: O35.8XX0 Maternal care for other (suspected) fetal abnormality and damage, not applicable or unspecified (principal); O72.2 Delayed and secondary postpartum hemorrhage; Z37.0 Single live birth; O70.0 First degree perineal laceration during delivery; O99.284 Endocrine, nutritional and metabolic diseases complicating childbirth; E07.9 Disorder of thyroid, unspecified; Z3A.38 38 weeks gestation of pregnancy; Z79.890 Hormone replacement therapy; Z79.899 Other long term (current) drug therapy
CPT/HCPCS: 85025; 86850; 86900; 86901; 86920

== ENCOUNTER → 2021-02-12 | Outpatient (CLI) | payer BC | END | disposition home or self-care (01) | LOC: LABWHC1 14:47 | PROVIDERS: ATTEND Obstetrics & Gynecology Obstetrics | DX: E03.9 Hypothyroidism, unspecified (principal) | CPT/HCPCS: 36415; 84439; 84443 ==

== ENCOUNTER → 2021-03-07 | Outpatient (CLI) | payer BC ==
--- NOTE | 2021-03-07 10:19 | USB ---
Reason for exam: clinical finding. History: Taking hormonal contraceptives for 6 years. Indicated problem(s): pain in the left breast. Physical Findings: Nurse Summary: Patient complains of pain left upper outer quadrant x 1.5 months, on and off, sharp/dull, milky/yellowish nipple discharge left breast only with expulsion, no spontaneous discharge, all soft, movable (nurse TM). US Breast LT Left complete breast ultrasound includes all four quadrants, the retroareolar region and axilla. Finding demonstrates no cystic or solid lesion seen. No duct ectasia. These results were verbally communicated with the patient and result sheet given to the patient on 03/07/21. ASSESSMENT: Negative, BI-RAD 1 RECOMMENDATION: Routine screening mammogram of both breasts at age 39. Manage on a clinical basis with regard to left breast pain. The breast can be reimaged if any suspicious discharge develops. Nurse educated patient as to suspicious nipple discharge.
== END | disposition home or self-care (01) ==
LOC: RADUSWWP 07:33
PROVIDERS: ATTEND Obstetrics & Gynecology Obstetrics
DX: N64.4 Mastodynia (principal)

== ENCOUNTER → 2021-05-09 | Outpatient (CLI) | payer BC ==
[2021-05-09 12:08] LABS: Appearance,Urine Clear (Clear); Bilirubin,Urine Negative (Negative); Blood,Urine Negative (Negative); Color,Urine Light Yellow; Glucose,Urine (UA) Negative (Negative); Ketones,Urine Negative (Negative); Leukocyte Esterase,Urine Trace (Negative); Nitrite,Urine Negative (Negative); Protein,Urine Negative (Negative); RBC,Urine <1 /hpf (0-5); Specific Gravity,Urine 1.008 (1.001-1.035); Squamous Epithelial Cell,Urine 1 /hpf (0-4); Urobilinogen,Urine <2.0 mg/dL (<2.0); WBC,Urine <1 /hpf (0-5)
[2021-05-09 16:23] LABS: Basophils # (A) 0.03 X 10*3/uL (0.00-0.10); Basophils % (A) 0.4 %; Eosinophils # (A) 0.06 X 10*3/uL (0.04-0.35); Eosinophils % (A) 0.8 %; HCT 38.9 % (37.2-46.3); HGB 12.4 g/dL (12.0-15.0); Lymphocytes # (A) 2.11 X 10*3/uL (0.90-5.00); Lymphocytes % (A) 28.9 %; MCH 28.1 pg (27.0-32.0); MCHC 31.9 g/dL (32.0-37.0); MCV 88.2 fL (80.0-97.0); Monocytes # (A) 0.51 X 10*3/uL (0.20-1.00); Neutrophils # (A) 4.59 X 10*3/uL (1.80-7.70); Neutrophils % (A) 62.8 %; Platelet Count 170 X 10*3/uL (140-440); RBC 4.41 X 10*6/uL (4.10-5.20); RDW 13.2 % (11.5-14.5); WBC 7.31 X 10*3/uL (4.50-10.00)
[2021-05-09 18:21] LABS: ALT 22 U/L (8-44); AST 17 U/L (13-35); African American GFR (CKD) 121.7 (60.0-200.0); Albumin/Globulin Ratio 1.28 (1.60-3.17); Alkaline Phosphatase 84 U/L (41-126); BUN/Creat Ratio 9.75 Ratio (12.00-20.00); Blood Urea Nitrogen 7.3 mg/dL (9.0-27.0); Calcium 8.9 mg/dL (8.7-10.3); Carbon Dioxide 20.8 mmol/L (21.6-31.8); Chloride 107 mmol/L (96-109); Chol/HDL Ratio 3.65 Ratio; Globulin 3.1 g/dL (1.6-3.3); Glucose 86 mg/dL (70-110); LDL Cholesterol,Calculated 64.3 mg/dL (0.0-131.0); Potassium 4.1 mmol/L (3.5-5.5); Sodium 140 mmol/L (135-145); Total Bilirubin <0.20 mg/dL (0.30-1.20); Total Protein 7.1 g/dL (6.2-8.2)
== END | disposition home or self-care (01) ==
LOC: LABWHC1 10:29
PROVIDERS: ATTEND Obstetrics & Gynecology Obstetrics
DX: Z00.00 Encounter for general adult medical examination without abnormal findings (principal); E66.9 Obesity, unspecified; E03.9 Hypothyroidism, unspecified
CPT/HCPCS: 36415; 80053; 80061; 81001; 82306; 83036; 84439; 84443; 85025

== ENCOUNTER → 2021-05-28 | Outpatient (CLI) | payer BC ==
[2021-05-28 13:44] LABS: African American GFR (CKD) 107.5 (60.0-200.0); Anion Gap 11.7 mmol/L (4.00-12.00); BUN/Creat Ratio 8.93 Ratio (12.00-20.00); Blood Urea Nitrogen 7.5 mg/dL (9.0-27.0); Calcium 9.2 mg/dL (8.7-10.3); Carbon Dioxide 21.6 mmol/L (21.6-31.8); Non-African American GFR(CKD) 92.8 (60.0-200.0); Potassium 4.4 mmol/L (3.5-5.5); T4, Free (Free Thyroxine) 1.37 ng/dL (0.800-1.800)
== END | disposition home or self-care (01) ==
LOC: LABWHC1 07:35
PROVIDERS: ATTEND Family Medicine
DX: E03.9 Hypothyroidism, unspecified (principal)
CPT/HCPCS: 36415; 80048; 84439; 84443

== ENCOUNTER 2024-11-03 06:04 | Inpatient (IN) | payer BC ==
[2024-11-03] MEDS ORDERED: METHYLERGONOVINE 0.2 MG/ML 1 ML AMP IM PRN (06:06)
[2024-11-03] MEDS ORDERED: TERBUTALINE 1 MG/ML VIAL SQ PRN (06:06)
[2024-11-03] MEDS ORDERED: TRANEXAMIC 1,000 MG/100ML-NACL 1,000 MG in EMPTY BAG 1 BAG IV PRN (06:06)
[2024-11-03] MEDS ORDERED: miSOPROStoL 200 MCG TAB RECTAL PRN (06:06)
[2024-11-03] MEDS ORDERED: LIDOCAINE 0.5% (PF) 5 MG/ML (50 ML SDV) SQ PRN (06:06)
[2024-11-03] MEDS ORDERED: miSOPROStoL 200 MCG TAB PO PRN (06:06)
[2024-11-03] MEDS ORDERED: CARBOPROST TROMETHAMINE 250 MCG/ML 1 ML AMP IM PRN (06:06)
[2024-11-03] MEDS ORDERED: OXYTOCIN 10 UNIT/ML 1 ML VIAL IM PRN (06:06)
[2024-11-03] MEDS: OXYTOCIN 30 UNITS/500 ML NS 30 UNIT in SALINE 1 500ML.BAG IV SCH (06:35)
[2024-11-03] MEDS: LACTATED RINGERS 1,000 ML IV SCH (06:36)
[2024-11-03] MEDS: AMPICILLIN 2,000 MG in SODIUM CHLORIDE 0.9% 100 ML IVPB STA (06:40)
[2024-11-03 06:49] LABS: Basophils # (A) 0.04 10*3/uL (0.00-0.10); Basophils % (A) 0.4 %; Eosinophils # (A) 0.05 10*3/uL (0.04-0.35); Eosinophils % (A) 0.5 %; HCT 37.9 % (37.2-46.3); HGB 12.4 g/dL (12.0-15.0); Lymphocytes # (A) 2.64 10*3/uL (0.90-5.00); Lymphocytes % (A) 26.3 %; MCH 26.7 pg (27.0-32.0); MCHC 32.7 g/dL (32.0-37.0); MCV 81.5 fL (80.0-97.0); Mean Platelet Volume 12.5 fL (9.5-12.2); Monocytes # (A) 0.99 10*3/uL (0.20-1.00); Monocytes % (A) 9.9 %; Neutrophils # (A) 6.25 10*3/uL (1.80-7.70); Neutrophils % (A) 62.4 %; Platelet Count 198 10*3/uL (140-440); RBC 4.65 10*6/uL (4.10-5.20); RDW 13.6 % (11.5-14.5); WBC 10.02 10*3/uL (4.50-10.00)
[2024-11-03] MEDS: AMPICILLIN 1,000 MG in SODIUM CHLORIDE 0.9% 50 ML IVPB SCH (10:53)
[2024-11-03] MEDS ORDERED: diphenhydrAMINE 50 MG CAP PO PRN (12:42)
[2024-11-03] MEDS ORDERED: HYDROCORTISONE 2.5% RECTAL CREAM 30 GM TUBE RECTAL PRN (12:42)
[2024-11-03] MEDS ORDERED: SIMETHICONE 80 MG CHEWABLE PO PRN (12:42)
[2024-11-03] MEDS ORDERED: diphenhydrAMINE 25 MG CAP PO PRN (12:42)
[2024-11-03] MEDS ORDERED: LANOLIN CREAM 1 GM TUBE TOPICAL PRN (12:42)
[2024-11-03] MEDS ORDERED: ZOLPIDEM 5 MG TAB PO PRN (12:42)
[2024-11-03] MEDS ORDERED: diphenhydrAMINE 50 MG/ML 1 ML VIAL IVP PRN ×2 (12:42)
[2024-11-03] MEDS ORDERED: BENZOCAINE/MENTHOL SPRAY 1 GM/SPRAY AEROSOL TOPICAL PRN (12:42)
--- NOTE | 2024-11-03 12:45 | P.PROBDLV ---
Vaginal Delivery Note - . Vaginal Delivery Note: Date of service 11/03/2024 Findings viable male delivered at 1226, weight of 7 pounds 7 ounces 34-year-old 4 para 2-0-1-2 that presented to labor and delivery at 39- 0/7 weeks for induction of labor. Patient was admitted and Pitocin induction of labor was begun. Patient underwent amniotomy and clear fluid was obtained. Patient progressed in labor eventually becoming uncomfortable and requesting epidural. Epidural was placed without difficulty by the anesthesia department. Patient made quick progress toward complete dilation. Once completely dilated she began pushing and had a normal spontaneous vaginal delivery of a viable male at 1226, weight of 7 pounds 7.6 ounces, Apgars of 8 and 9 at 1 and 5 minutes respectively. After 2-minute delay the umbilical cord was doubly clamped and cut. Placenta was delivered spontaneously intact with a three- vessel cord being noted. On inspection the patient's vaginal vault a first- degree vaginal laceration was appreciated and repaired with a [id number] suture of 3-0 Rapide. Uterus was noted to be firm and below the umbilicus after delivery of the placenta. Estimated blood loss 100 cc. All counts found be correct x 2 at the end of the delivery. Patient and infant tolerated delivery well and are resting comfortably.
--- NOTE | 2024-11-03 12:46 | P.HPOB ---
History of Present Illness H&P Date: 11/03/24 Chief Complaint: IUP at 39 weeks This is a 34-year-old -0-0-3 at 39 weeks of gestation that presents to labor and delivery for induction of labor. Patient does have a prior history of hemorrhage after her last delivery. Patient has been receiving routine care with this which has been essentially uncomplicated. Patient notes good movement this morning, denies vaginal bleeding or loss of fluid. On blood work this patient has a blood type of O+, rubella status immune, hepatitis B surface engine negative, HIV negative, group A strep culture positive, we will plan on treating with ampicillin. Review of Systems Constitutional: Denies chills, Denies fatigue, Denies fever Ears, nose, mouth and throat: Denies headache Cardiovascular: Reports leg edema Respiratory: Denies dyspnea Gastrointestinal: Denies nausea, Denies vomiting Genitourinary: Reports Past Medical History Past Medical History: Thyroid Disorder Additional Past Medical History / Comment(s): nearsightedness. hypothyroidism, hypertension with first . denies preeclampsia, PPH History of Any Multi-Drug Resistant Organisms: None Reported Past Surgical History: Orthopedic Surgery Additional Past Surgical History / Comment(s): [place] teeth removal Past Anesthesia/Blood Transfusion Reactions: No Reported Reaction Past Psychological History: No Psychological Hx Reported Smoking Status: Never smoker Past Alcohol Use History: None Reported Past Drug Use History: None Reported - Past Family History Father Family Medical History: No Reported History Medications and Allergies Home Medications Medication Instructions Recorded Confirmed Type Levothyroxine Sodium [Synthroid] 125 mcg PO DAILY MDD 125 mcg 07/12/17 07/11/20 History Pnv,Calcium 72/Iron/Folic Acid 1 tab PO DAILY MDD 1 tab 08/02/17 07/11/20 History [ Plus Tablet] Allergies Allergy/AdvReac Type Severity Reaction Status Date / Time No Known Allergies Allergy Verified 11/03/24 06:05 Exam Osteopathic Statement: *. No significant issues noted on an osteopathic structural exam other than those noted in the History and Physical/Consult. Intake and Output 11/02/24 11/03/24 11/03/24 22:59 06:59 14:59 Other: Weight 100.698 kg Targeted physical exam is performed this date in general is well-nourished well- developed female in no acute distress, breathing is nonlabored, heart has a regular rate and rhythm, abdomen is gravid, on cervical exam she is 4/50/- 2 station vertex presentation is confirmed by ultrasound, amniotomy is performed and clear fluid is obtained. heart tones are noted to be category 1 and she is latrice every 2 minutes. Results Result Diagrams: 11/03/24 06:15 Abnormal Lab Results - Last 24 Hours (Table) 11/03/24 Range/Units 06:15 WBC 10.02 H (4.50-10.00) 10*3/uL MCH 26.7 L (27.0-32.0) pg MPV 12.5 H (9.5-12.2) fL Immature Gran # 0.05 H (0.00-0.04) 10*3/uL Assessment and Plan (1) Term Current Visit: No Status: Acute Code(s): Z34.80 - ENCOUNTER FOR SUPRVSN OF NORMAL , UNSP TRIMESTER SNOMED Code(s): 07264668 Plan: Assessment: Term Plan: Admit to labor and delivery Pitocin induction of labor per hospital protocol Clear liquids as tolerated Anticipate spontaneous vaginal delivery
[2024-11-03 12:53] VITALS: RESP 16
[2024-11-03] MEDS ORDERED: IBUPROFEN 800 MG TAB PO SCH (16:00)
[2024-11-03] MEDS: ROPIVACAINE 225 MG, fentaNYL (PF). 450 MCG in SODIUM CHLORIDE 0.9% 171 ML EPIDURAL ONE (19:40)
[2024-11-03] MEDS: IBUPROFEN 800 MG TAB PO SCH (19:41)
[2024-11-03] MEDS: LEVOTHYROXINE 125 MCG TAB PO SCH (19:41)
[2024-11-03] MEDS: PRENATAL VIT-IRON-FOLIC ACID 1 EACH TABLET PO SCH (19:41)
[2024-11-03] MEDS: SENNOSIDES-DOCUSATE SODIUM 1 EACH TAB PO SCH (20:15)
[2024-11-04] MEDS: ACETAMINOPHEN TAB 500 MG TAB PO SCH (06:15)
[2024-11-04 08:30] VITALS: BP 132/79; PULSE 89; TEMP 98
--- NOTE | 2024-11-04 10:05 | P.DS ---
Providers Date of admission: 11/03/24 06:04 Expected date of discharge: 11/04/24 Attending physician: Bisi Chow Primary care physician: Stated None - Discharge Diagnosis(es) (1) Term Current Visit: No Status: Acute (2) Obstetrical laceration, first degree Current Visit: Yes Status: Acute (3) Normal spontaneous vaginal delivery Current Visit: No Status: Acute Hospital Course: 34-year-old 4 para 3013 that presents to labor and delivery for scheduled induction of labor. Patient has been receiving routine care which has been essentially uncomplicated. For full details of this patient please see the dictated history and physical. Patient was admitted to labor and delivery and Pitocin induction of labor was begun. Patient and her went amniotomy clear fluid was obtained. Patient progressed through labor eventually becoming uncomfortable and requesting epidural. Patient made good progress for complete dilation. Once completely dilated she began pushing and had a normal spontaneous vaginal delivery of a viable male at 1226, weight of 7 pounds 7 ounces. Apgars of 8 and 9 at 1 and 5 minutes respectively. Patient did sustain a first-degree obstetric laceration. This was repaired in the usual fashion. Patient has done well . On this day #1 she is ambulating and voiding without difficulty. She is tolerating a regular diet without nausea or vomiting. States her pain is well-controlled. She denies concerns and would like discharge home at 24 hours. Patient Condition at Discharge: Good Plan - Discharge Summary New Discharge Prescriptions: No Action Levothyroxine Sodium [Synthroid] 125 mcg PO DAILY MDD 125 mcg Pnv,Calcium 72/Iron/Folic Acid [ Plus Tablet] 1 tab PO DAILY MDD 1 tab Discharge Medication List Levothyroxine Sodium [Synthroid] 125 mcg PO DAILY MDD 125 mcg 07/12/17 [History] Pnv,Calcium 72/Iron/Folic Acid [ Plus Tablet] 1 tab PO DAILY MDD 1 tab 08/02/17 [History] Follow up Appointment(s)/Referral(s): Bisi Chow DO [Doctor of Osteopathic Medicine] - 12/13/24 1:00 pm Patient Instructions/Handouts: Vaginal Delivery (GEN), Vaginal Delivery (DC) Activity/Diet/Wound Care/Special Instructions: No tub baths or intercourse until 6 weeks . [id number] ibuprofen 600 mg or 3 tablets every 6 hours as needed for pain. Routine follow- up in 6 weeks Discharge Disposition: HOME SELF-CARE
== END 2024-11-04 14:12 | disposition home or self-care (01) | DRG 807 ==
LOC: 4FBP 06:04
PROVIDERS: ADMIT Obstetrics & Gynecology Obstetrics; ATTEND Obstetrics & Gynecology Obstetrics
PROC: 10907ZC Drainage of Amniotic Fluid, Therapeutic from Products of Conception, Via Natural or Artificial Opening (ICD-10-PCS; principal; 2024-11-03)
PROC: 0HQ9XZZ Repair Perineum Skin, External Approach (ICD-10-PCS; principal; 2024-11-03)
PROC: 3E033VJ Introduction of Other Hormone into Peripheral Vein, Percutaneous Approach (ICD-10-PCS; principal; 2024-11-03)
PROC: 10E0XZZ Delivery of Products of Conception, External Approach (ICD-10-PCS; principal; 2024-11-03)
DX: O99.824 Streptococcus B carrier state complicating childbirth (principal); E03.9 Hypothyroidism, unspecified; O99.284 Endocrine, nutritional and metabolic diseases complicating childbirth; O70.0 First degree perineal laceration during delivery; Z79.890 Hormone replacement therapy; Z3A.39 39 weeks gestation of pregnancy; Z37.0 Single live birth
CPT/HCPCS: 85025; 86850; 86900; 86901